=== PATIENT | female | born 1955 | race Caucasian/White ===

== ENCOUNTER 2019-07-26 07:36 | Day surgery (SDC) | payer MEDICARE, BC ==
[2019-07-26] MEDS ORDERED: LACTATED RINGERS 1,000 ML IV.SOLN IV ONE (08:48)
[2019-07-26] MEDS ORDERED: MIDAZOLAM HCL 2 MG/2 ML VIAL ONE (08:48)
[2019-07-26] MEDS ORDERED: fentaNYL CITRATE/PF 100 MCG/2 ML INJ. ONE (08:48)
[2019-07-26] MEDS ORDERED: NORMAL SALINE 1,000 ML IV.SOLN IV ONE (08:48)
== END 2019-07-26 10:10 | disposition home or self-care (01) ==
LOC: OPSURG 07:36
PROVIDERS: ATTEND Physical Medicine & Rehabilitation
DX: M47.817 Spondylosis without myelopathy or radiculopathy, lumbosacral region (principal); M54.5 Low back pain
CPT/HCPCS: 64635; 64640; J2250; J3010; J7030; J7120

== ENCOUNTER 2019-08-09 09:01 | Day surgery (SDC) | payer MEDICARE, BC ==
[~2019-08-09 09:01] MED LIST: BUPIV. HCL 0.5% (5MG/ML)/EPI. (1:200,000) PF 30 ML VIAL IJ ONE; LIDOCAINE HCL 1% PF 300MG/30ML VIAL ONE; MIDAZOLAM HCL 2 MG/2 ML VIAL ONE; NORMAL SALINE 1,000 ML IV.SOLN IV ONE; fentaNYL CITRATE/PF 100 MCG/2 ML INJ. ONE
== END 2019-08-09 12:40 | disposition home or self-care (01) ==
LOC: OPSURG 09:01
PROVIDERS: ATTEND Physical Medicine & Rehabilitation
DX: M47.817 Spondylosis without myelopathy or radiculopathy, lumbosacral region (principal); M46.1 Sacroiliitis, not elsewhere classified
CPT/HCPCS: 64635; 64636; J2001; J2250; J3010; J7030; 64640